=== PATIENT | female | born 1985 | race Caucasian/White ===

== ENCOUNTER 2016-03-15 05:14 | Emergency (ER) | payer OTHER ==
[~2016-03-15] VITALS: Ht 172.7 cm; Wt 71.4 kg
[~2016-03-15 05:14] MED LIST: ACYC400T2 PO; ALBU18HF; INSU100I17 SUBQ; INSULIN LANTUS SQ; TRAZ150T72 PO
[2016-03-15 05:16] VITALS: BP 96/60; PULSE 99; RESP 20; O2SAT 97
[2016-03-15] MEDS ORDERED: 0.9% Sodium Chloride 1,000 ML IV ONE (05:48)
[2016-03-15] MEDS ORDERED: Ondansetron 2 mg/mL 2 mL Inj IVPUSH ONE (05:50)
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
[2016-03-15] MEDS ORDERED: 0.9% Sodium Chloride 1,000 ML IV SCH (06:15)
[2016-03-15 06:35] LABS: BASOPHILS % (AUTO) 0.3 % (0-3); EOSINOPHILS % (AUTO) 1.8 % (0-5); Mean Corpuscular Hemoglobin 27.7 pg (27.0-35.0); Mean Corpuscular Volume 83.4 fL (81-100); Platelet Count 216 bil/L (150-400)
[2016-03-15 08:07] LABS: Lipase 18 U/L (13-60); Magnesium 1.6 mg/dL (1.6-2.6)
[2016-03-15] MEDS ORDERED: Insulin GLARgine 100 Unit/mL Syringe SUBQ ONE (08:20)
[2016-03-15] MEDS ORDERED: Insulin Human REGular 300 Unit/3 mL Inj SUBQ SCH (08:30)
[2016-03-15] MEDS ORDERED: INSLIS SUBQ (08:38)
[2016-03-15] MEDS ORDERED: INSU100V7 SUBQ (08:38)
[2016-03-15] MEDS ORDERED: Insulin Human REGular-Omnicell 100 Unit/mL SUBQ SCH (08:39)
[2016-03-15 09:40] VITALS: BP 101/80; PULSE 84; RESP 20
[2016-03-15 10:44] LABS: APPEARANCE,URINE CLEAR (CLEAR,HAZY); COLOR,URINE YELLOW (YELLOW)
[2016-03-15 10:45] LABS: OCCULT BLOOD,URINE NEGATIVE (NEGATIVE); UROBILINOGEN,URINE NORMAL (NORMAL)
== END 2016-03-15 09:20 | disposition home or self-care (01) ==
LOC: SED 05:14
DX: E11.9 Type 2 diabetes mellitus without complications (principal); R42 Dizziness and giddiness; J45.909 Unspecified asthma, uncomplicated; Z98.890 Other specified postprocedural states; Z59.0 Homelessness; Z79.4 Long term (current) use of insulin; Z88.1 Allergy status to other antibiotic agents; Z88.5 Allergy status to narcotic agent; Z88.8 Allergy status to other drugs, medicaments and biological substances
CPT/HCPCS: 36415; 80053; 81000; 81025; 82009; 82948; 83690; 83735; 85025; 96361; 96372; 96374; 99285; J1815; J2405; J7030

== ENCOUNTER 2016-03-17 08:33 | Emergency (ER) | payer OTHER ==
[~2016-03-17] VITALS: Ht 172.7 cm; Wt 90.0 kg
[~2016-03-17 08:33] MED LIST changes: +INSLIS SUBQ; +INSU100V7 SUBQ
[2016-03-17 08:40] VITALS: BP 106/67; PULSE 102; RESP 16
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
[2016-03-17 10:06] VITALS: BP 106/67; PULSE 100; RESP 16
== END 2016-03-17 10:08 | disposition home or self-care (01) ==
LOC: SED 08:33
DX: R50.9 Fever, unspecified (principal); E13.8 Other specified diabetes mellitus with unspecified complications; J02.9 Acute pharyngitis, unspecified; J45.909 Unspecified asthma, uncomplicated; F17.200 Nicotine dependence, unspecified, uncomplicated; Z79.4 Long term (current) use of insulin; Z88.1 Allergy status to other antibiotic agents; Z88.5 Allergy status to narcotic agent; Z88.8 Allergy status to other drugs, medicaments and biological substances

== ENCOUNTER 2016-08-22 21:44 | Emergency (ER) | payer OTHER ==
[~2016-08-22] VITALS: Ht 170.2 cm; Wt 91.8 kg
[2016-08-22 21:48] VITALS: BP 110/78; PULSE 78; RESP 17; O2SAT 98
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
[2016-08-22] MEDS ORDERED: 0.9% Sodium Chloride 1,000 ML IV ONE (22:49)
[2016-08-22] MEDS ORDERED: Ondansetron 2 mg/mL 2 mL Inj IVPUSH ONE (22:50)
[2016-08-22] MEDS ORDERED: Pantoprazole 4 mg/mL 10 mL Inj IVPUSH ONE (22:50)
[2016-08-22 23:33] LABS: APPEARANCE,URINE SLIGHTLY CLOUDY (CLEAR,HAZY); COLOR,URINE YELLOW (YELLOW); OCCULT BLOOD,URINE NEGATIVE (NEGATIVE); PH,URINE 5.5 (5.0-8.0); UROBILINOGEN,URINE NORMAL (NORMAL)
[2016-08-22 23:48] LABS: BASOPHILS % (AUTO) 0.4 % (0-3); EOSINOPHILS % (AUTO) 1.4 % (0-5); MONOCYTES % (AUTO) 8.4 % (4-12); Mean Corpuscular Hemoglobin 27.8 pg (27.0-35.0); Mean Corpuscular Volume 80.5 fL (81-100); NEUTROPHILS % (AUTO) 60.1 % (40-74); Platelet Count 249 bil/L (150-400)
[2016-08-22] MEDS ORDERED: Insulin GLARgine 100 Unit/mL Syringe SUBQ ONE (23:50)
[2016-08-23 00:13] LABS: INR 0.95 ratio
[2016-08-23 00:30] LABS: Magnesium 1.5 mg/dL (1.6-2.6); TROPONIN T < 0.010 ug/L (0.0-0.011)
[2016-08-23 04:15] VITALS: BP 99/63; PULSE 73; RESP 16; O2SAT 100
[2016-08-23] MEDS ORDERED: ONDA8TAB10 PO (04:44)
[2016-08-23] MEDS ORDERED: OMEP20TA86 PO (04:44)
--- NOTE | 2016-08-23 11:59 | DRSVH ---
PROCEDURE: X-RAY CHEST ONE VIEW, PORTABLE ([id number]) INDICATIONS: vomiting, hematemesis TECHNIQUE: One view of the chest was acquired. COMPARISON: [facility], CR, CHEST 1 VIEW, 07/14/2016, 14:50. [facility], CR, XR [address]RI[address]IN [address] 1VW (PORTABLE), 11/30/2015, 17:34. FINDINGS: Surgical changes and devices: None. Lungs and pleura: No pleural effusions or pneumothorax. Lungs are clear. Mediastinum: Mediastinal contours appear normal. Heart size is normal. Bones and chest wall: No suspicious bony lesions. Overlying soft tissues appear unremarkable. IMPRESSION: 1. No acute cardiopulmonary disease. Dictated by: Yusef Chappell M.D. on 08/23/2016 at 11:51 Approved by: Yusef Chappell M.D. on 08/23/2016 at 11:51
== END 2016-08-23 05:11 | disposition home or self-care (01) ==
LOC: SED 21:44
DX: K92.0 Hematemesis (principal); E13.8 Other specified diabetes mellitus with unspecified complications; R11.0 Nausea; F17.200 Nicotine dependence, unspecified, uncomplicated; J45.909 Unspecified asthma, uncomplicated; Z59.0 Homelessness; Z79.4 Long term (current) use of insulin; F43.10 Post-traumatic stress disorder, unspecified; Z88.1 Allergy status to other antibiotic agents; Z88.6 Allergy status to analgesic agent
CPT/HCPCS: 36415; 71010; 80053; 81000; 81002; 81025; 82948; 83735; 84484; 85014; 85018; 85025; 85610; 86850; 96361; 96374; 96375; 99285; J1815; J2405; J7030

== ENCOUNTER 2016-09-06 10:29 | Emergency (ER) | payer OTHER ==
[~2016-09-06] VITALS: Ht 170.2 cm; Wt 93.2 kg
[~2016-09-06 10:29] MED LIST changes: +OMEP20TA86 PO; +ONDA8TAB10 PO
[2016-09-06 10:36] VITALS: BP 105/69; PULSE 100; RESP 18; O2SAT 97
[2016-09-06] MEDS ORDERED: 0.9% Sodium Chloride 1,000 ML IV ONE (11:10)
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
[2016-09-06] MEDS ORDERED: Insulin LISPRO 300 Unit/3 mL Inj SUBQ ONE (11:30)
[2016-09-06] MEDS ORDERED: Insulin GLARgine 100 Unit/mL Syringe SUBQ ONE (11:30)
[2016-09-06 12:34] LABS: BASOPHILS % (AUTO) 0.5 % (0-3); EOSINOPHILS % (AUTO) 1.9 % (0-5); MONOCYTES % (AUTO) 7.3 % (4-12); Mean Corpuscular Hemoglobin 27.5 pg (27.0-35.0); Mean Corpuscular Volume 79.8 fL (81-100); NEUTROPHILS % (AUTO) 64.4 % (40-74); Platelet Count 275 bil/L (150-400)
[2016-09-06 13:43] VITALS: BP 98/63; PULSE 75; RESP 20; O2SAT 100
[2016-09-06] MEDS ORDERED: INSU100V7 SUBQ ×2 (13:58→14:06)
[2016-09-06] MEDS ORDERED: INSLIS SUBQ (14:06)
[2016-09-06] MEDS ORDERED: BLOO-1504 MC (14:08)
[2016-09-06 14:48] VITALS: BP 100/67; PULSE 70; RESP 16; O2SAT 98
== END 2016-09-06 14:48 | disposition home or self-care (01) ==
LOC: SED 10:29
DX: E11.65 Type 2 diabetes mellitus with hyperglycemia (principal); R55 Syncope and collapse; E86.0 Dehydration; S00.03XA Contusion of scalp, initial encounter; W18.09XA Striking against other object with subsequent fall, initial encounter; Y93.89 Activity, other specified; Y99.8 Other external cause status; Y92.89 Other specified places as the place of occurrence of the external cause; J45.909 Unspecified asthma, uncomplicated; F15.10 Other stimulant abuse, uncomplicated; F12.10 Cannabis abuse, uncomplicated; F17.210 Nicotine dependence, cigarettes, uncomplicated; F43.10 Post-traumatic stress disorder, unspecified; F90.9 Attention-deficit hyperactivity disorder, unspecified type; Z91.19 Patient's noncompliance with other medical treatment and regimen; Z59.0 Homelessness; Z79.51 Long term (current) use of inhaled steroids; Z79.4 Long term (current) use of insulin; Z88.1 Allergy status to other antibiotic agents; Z88.6 Allergy status to analgesic agent; Z88.5 Allergy status to narcotic agent
CPT/HCPCS: 36415; 80053; 82009; 82948; 84703; 85025; 93005; 96360; 96372; 99285; J1815; J7030

== ENCOUNTER 2016-09-26 21:46 | Emergency (ER) | payer OTHER ==
[~2016-09-26] VITALS: Ht 170.2 cm; Wt 86.4 kg
[~2016-09-26 21:46] MED LIST changes: +BLOO-1504 MC; -INSU100I17 SUBQ; -INSULIN LANTUS SQ
[2016-09-26 21:54] VITALS: BP 113/73; PULSE 90; RESP 20; O2SAT 97
[2016-09-26 23:35] LABS: APPEARANCE,URINE HAZY (CLEAR,HAZY); COLOR,URINE YELLOW (YELLOW)
[2016-09-26 23:36] LABS: OCCULT BLOOD,URINE NEGATIVE (NEGATIVE); UROBILINOGEN,URINE NORMAL (NORMAL)
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
[2016-09-27] MEDS ORDERED: 0.9% Sodium Chloride 1,000 ML IV ONE (00:24)
[2016-09-27] MEDS ORDERED: cefTRIAXone Inj 2,000 MG in Dextrose 5% Minibag Plus 50 ML IV ONE (00:25)
[2016-09-27] MEDS ORDERED: Insulin Human REGular-Omnicell 100 Unit/mL SUBQ ONE (00:25)
[2016-09-27 01:48] LABS: BASOPHILS % (AUTO) 0.4 % (0-3); EOSINOPHILS % (AUTO) 3.3 % (0-5); MONOCYTES % (AUTO) 13.3 % (4-12); Mean Corpuscular Hemoglobin 27.5 pg (27.0-35.0); Mean Corpuscular Volume 79.6 fL (81-100); NEUTROPHILS % (AUTO) 55.1 % (40-74); Platelet Count 221 bil/L (150-400)
[2016-09-27 03:56] VITALS: BP 99/65; PULSE 82; RESP 17; O2SAT 98
[2016-09-27] MEDS ORDERED: _Trimethoprim-Sulfa 160/800 mg Tablet PO SCH (20:30)
== END 2016-09-27 04:28 | disposition home or self-care (01) ==
LOC: SED 21:46
DX: N30.00 Acute cystitis without hematuria (principal); B96.20 Unspecified Escherichia coli [E. coli] as the cause of diseases classified elsewhere; J45.909 Unspecified asthma, uncomplicated; E11.65 Type 2 diabetes mellitus with hyperglycemia; F43.10 Post-traumatic stress disorder, unspecified; F17.200 Nicotine dependence, unspecified, uncomplicated; Z91.19 Patient's noncompliance with other medical treatment and regimen; Z79.4 Long term (current) use of insulin; Z88.1 Allergy status to other antibiotic agents; Z88.5 Allergy status to narcotic agent; Z88.6 Allergy status to analgesic agent
CPT/HCPCS: 36415; 80053; 81000; 81025; 82948; 85025; 87077; 87086; 87088; 87186; 96365; 96372; 99285; J0696; J1815; J7030

== ENCOUNTER 2016-10-18 13:50 | Emergency (ER) | payer OTHER ==
[~2016-10-18] VITALS: Ht 175.3 cm; Wt 90.0 kg
[2016-10-18 14:00] VITALS: BP 105/66; PULSE 86; RESP 16; O2SAT 98
[2016-10-18] MEDS ORDERED: 0.9% Sodium Chloride 1,000 ML IV ONE (14:20)
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
[2016-10-18] MEDS ORDERED: Insulin LISPRO 300 Unit/3 mL Inj SUBQ ONE (15:10)
[2016-10-18 16:23] LABS: BASOPHILS % (AUTO) 0.3 % (0-3); EOSINOPHILS % (AUTO) 2.1 % (0-5); MONOCYTES % (AUTO) 8.1 % (4-12); Mean Corpuscular Hemoglobin 27.2 pg (27.0-35.0); Mean Corpuscular Volume 80.2 fL (81-100); NEUTROPHILS % (AUTO) 70.8 % (40-74); Platelet Count 256 bil/L (150-400)
--- NOTE | 2016-10-18 17:15 | ABG ---
DateTimeAnalyzed 17:09:00 -_ pH ____7.372 - pCO2 ___53.9__ -mmHg pO2 ___26.5__ -mmHg HCO3- ___30.6__ -mmol/L ABE ____4.5__ -mmol/L tHb ___13.7__ -g/dL O2Hb ___47.3__ -% COHb ____1.5__ -% MetHb ____1.0__ -% sO2 ___48.5__ -% FIO2 ___21.0__ -% Drawn By as - Date/Time Notified____ 17:15:00 -_ Notified By ams - Notified Whom dr iris - B 755 -mmHg tO2 ____9.1__ -Vol% Des test N/A -
[2016-10-18] MEDS ORDERED: INSU100V7 SUBQ (17:52)
[2016-10-18] MEDS ORDERED: INSLIS SUBQ (17:53)
[2016-10-18 18:03] VITALS: BP 111/59; PULSE 81; RESP 16; RESP 18; O2SAT 100
== END 2016-10-18 18:04 | disposition home or self-care (01) ==
LOC: SED 13:50
DX: E10.65 Type 1 diabetes mellitus with hyperglycemia (principal); F43.10 Post-traumatic stress disorder, unspecified; J45.909 Unspecified asthma, uncomplicated; F17.200 Nicotine dependence, unspecified, uncomplicated; F12.20 Cannabis dependence, uncomplicated; F15.20 Other stimulant dependence, uncomplicated; Z87.828 Personal history of other (healed) physical injury and trauma; Z59.0 Homelessness; Z79.4 Long term (current) use of insulin; Z79.84 Long term (current) use of oral hypoglycemic drugs; Z88.1 Allergy status to other antibiotic agents; Z88.5 Allergy status to narcotic agent; Z88.6 Allergy status to analgesic agent
CPT/HCPCS: 36415; 80053; 82375; 82803; 82948; 85025; 96372; 99285; J1815

== ENCOUNTER 2016-11-10 19:00 | Emergency (ER) | payer OTHER ==
[~2016-11-10] VITALS: Ht 170.2 cm; Wt 85.9 kg
[2016-11-10 19:18] VITALS: BP 107/74; PULSE 94; RESP 16; O2SAT 98
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
[2016-11-10] MEDS ORDERED: 0.9% Sodium Chloride 1,000 ML IV ONE (21:34)
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
[2016-11-10 21:54] LABS: APPEARANCE,URINE CLEAR (CLEAR,HAZY); COLOR,URINE STRAW (YELLOW); PH,URINE 5.5 (5.0-8.0)
[2016-11-10 21:55] LABS: OCCULT BLOOD,URINE TRACE (NEGATIVE); UROBILINOGEN,URINE NORMAL (NORMAL)
[2016-11-10 22:18] LABS: BASOPHILS % (AUTO) 0.4 % (0-3); EOSINOPHILS % (AUTO) 4.7 % (0-5); MONOCYTES % (AUTO) 7.4 % (4-12); Mean Corpuscular Hemoglobin 27.4 pg (27.0-35.0); Mean Corpuscular Volume 79.6 fL (81-100); NEUTROPHILS % (AUTO) 50.7 % (40-74); Platelet Count 263 bil/L (150-400)
[2016-11-10 22:30] LABS: INR 0.93 ratio
[2016-11-10 22:37] LABS: Lipase 22 U/L (13-60); Magnesium 1.7 mg/dL (1.6-2.6)
[2016-11-11] MEDS ORDERED: Insulin Human REGular-Omnicell 100 Unit/mL IV ONE (00:25)
[2016-11-11 00:48] VITALS: BP 101/54; PULSE 70; RESP 20; O2SAT 98
[2016-11-11 03:04] VITALS: BP 105/42; PULSE 74; RESP 16; O2SAT 98
== END 2016-11-11 02:49 | disposition home or self-care (01) ==
LOC: SED 19:00
DX: E10.65 Type 1 diabetes mellitus with hyperglycemia (principal); F15.10 Other stimulant abuse, uncomplicated; Z91.19 Patient's noncompliance with other medical treatment and regimen; Z59.0 Homelessness; F43.10 Post-traumatic stress disorder, unspecified; F17.200 Nicotine dependence, unspecified, uncomplicated; Z79.4 Long term (current) use of insulin; Z88.1 Allergy status to other antibiotic agents; Z88.5 Allergy status to narcotic agent; Z88.6 Allergy status to analgesic agent
CPT/HCPCS: 36415; 80053; 81000; 81025; 82009; 82948; 83690; 83735; 85025; 85610; 96360; 99285; J1815; J7030

== ENCOUNTER 2016-11-17 21:23 | Emergency (ER) | payer OTHER ==
[~2016-11-17] VITALS: Ht 170.2 cm; Wt 89.5 kg
[2016-11-17 21:39] VITALS: BP 110/70; PULSE 106; RESP 18; O2SAT 98
[2016-11-17 22:48] LABS: BASOPHILS % (AUTO) 0.4 % (0-3); EOSINOPHILS % (AUTO) 0.8 % (0-5); MONOCYTES % (AUTO) 8.8 % (4-12); Mean Corpuscular Hemoglobin 27.4 pg (27.0-35.0); Mean Corpuscular Volume 79.8 fL (81-100); NEUTROPHILS % (AUTO) 73.6 % (40-74); Platelet Count 271 bil/L (150-400)
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
[2016-11-18] MEDS ORDERED: 0.9% Sodium Chloride 1,000 ML IV ONE (00:30)
[2016-11-18] MEDS ORDERED: Insulin Human REGular-Omnicell 100 Unit/mL SUBQ ONE (00:30)
[2016-11-18 01:19] VITALS: BP 105/61; PULSE 78; RESP 16; O2SAT 100
--- NOTE | 2016-11-18 01:54 | ABG ---
DateTimeAnalyzed 01:47:00 -_ pH ____7.345 - 7.350 7.450 pCO2 ___50.7__ -mmHg 35.0 45.0 pO2 ___47.1__ -mmHg 69.0 116 HCO3- ___26.9__ -mmol/L 22.0 26.0 ABE ____1.2__ -mmol/L -2.0 2.0 tHb ___11.7__ -g/dL 12.0 18.0 O2Hb ___77.2__ -% COHb ____1.3__ -% 0.0 1.5 MetHb ____1.0__ -% 0.4 1.5 sO2 ___79.0__ -% FIO2 ___21.0__ -% Drawn By RN - Date/Time Notified____ 01:54:00 -_ Notified By MD - Notified Whom DR LEIBRAND - B 756 -mmHg tO2 ___12.7__ -Vol% Des test N/A -
[2016-11-18 05:28] VITALS: BP 98/58; PULSE 63; RESP 16; O2SAT 96
[2016-11-18 08:38] VITALS: BP 89/46; PULSE 71; RESP 16; O2SAT 97
== END 2016-11-18 09:57 ==
LOC: SED 21:23
DX: E10.65 Type 1 diabetes mellitus with hyperglycemia (principal); Z59.0 Homelessness; F17.200 Nicotine dependence, unspecified, uncomplicated; Z79.4 Long term (current) use of insulin; Z88.1 Allergy status to other antibiotic agents; Z88.6 Allergy status to analgesic agent; Z88.8 Allergy status to other drugs, medicaments and biological substances; F43.10 Post-traumatic stress disorder, unspecified
CPT/HCPCS: 36415; 36620; 80053; 81025; 82375; 82803; 82948; 85025; 96360; 96372; 99284; J1815; J7030

== ENCOUNTER 2016-11-24 19:55 | Emergency (ER) | payer OTHER ==
[~2016-11-24] VITALS: Ht 172.7 cm; Wt 83.2 kg
[2016-11-24 20:27] VITALS: BP 108/73; PULSE 91; RESP 16; O2SAT 99
[2016-11-24] MEDS ORDERED: Trimethoprim-Sulfa 160 mg-800 mg Tablet PO ONE (23:10)
[2016-11-24] MEDS ORDERED: Insulin GLARgine 100 Unit/mL Syringe SUBQ ONE (23:10)
--- NOTE | 2016-11-24 23:38 | ABG ---
DateTimeAnalyzed 23:31:00 -_ pH ____7.360 - 7.320 7.420 pCO2 ___54.0__ -mmHg 41.0 51.0 pO2 ___20.3__ -mmHg 24.0 40.0 HCO3- ___29.7__ -mmol/L ABE ____3.3__ -mmol/L tHb ___15.8__ -g/dL 12.0 18.0 O2Hb ___29.5__ -% COHb ____1.0__ -% 0.0 1.5 MetHb ____0.8__ -% 0.4 1.5 sO2 ___30.0__ -% FIO2 ___21.0__ -% Drawn By _LAB TECH - Date/Time Notified____ 23:38:00 -_ Spontaneous_RR ___18.0__ -b/min Notified Whom DR BUNDY - B 756 -mmHg tO2 ____6.6__ -Vol% Des test N/A -
[2016-11-24 23:53] LABS: BASOPHILS % (AUTO) 0.3 % (0-3); EOSINOPHILS % (AUTO) 1.6 % (0-5); MONOCYTES % (AUTO) 8.9 % (4-12); Mean Corpuscular Hemoglobin 27.2 pg (27.0-35.0); Platelet Count 278 bil/L (150-400)
[2016-11-24] MEDS ORDERED: Dextrose 10% 250 ML IV PRN (23:55)
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
[2016-11-25 00:18] LABS: APPEARANCE,URINE CLEAR (CLEAR,HAZY); COLOR,URINE YELLOW (YELLOW); OCCULT BLOOD,URINE SMALL (NEGATIVE); PH,URINE 5.5 (5.0-8.0); UROBILINOGEN,URINE NORMAL (NORMAL); YEAST,URINE FEW (NONE SEEN)
[2016-11-25] MEDS ORDERED: Insulin LISPRO 300 Unit/3 mL Inj SUBQ ONE (00:55)
[2016-11-25] MEDS ORDERED: _Trimethoprim-Sulfa 160/800 mg Tablet PO SCH (01:35)
[2016-11-25 02:51] VITALS: BP 156/83; PULSE 88; RESP 19; O2SAT 97
== END 2016-11-25 02:51 | disposition home or self-care (01) ==
LOC: SED 19:55
DX: L08.9 Local infection of the skin and subcutaneous tissue, unspecified (principal); E11.65 Type 2 diabetes mellitus with hyperglycemia; R42 Dizziness and giddiness; R11.0 Nausea; R19.7 Diarrhea, unspecified; R68.83 Chills (without fever); J45.909 Unspecified asthma, uncomplicated; F17.200 Nicotine dependence, unspecified, uncomplicated; Z98.890 Other specified postprocedural states; Z59.0 Homelessness; Z79.4 Long term (current) use of insulin; Z88.1 Allergy status to other antibiotic agents; Z88.5 Allergy status to narcotic agent; Z88.6 Allergy status to analgesic agent
CPT/HCPCS: 36415; 80053; 81000; 82375; 82803; 82948; 84703; 85025; 87070; 87186; 87205; 96372; 99284; J1815